=== PATIENT | male | born 1950 | race Hispanic/Latino ===

== ENCOUNTER → 2018-07-06 | Outpatient (CLI) | payer OTHER | END | disposition home or self-care (01) | LOC: SHCH 07:45 | PROVIDERS: ATTEND Internal Medicine Cardiovascular Disease | DX: I70.1 Atherosclerosis of renal artery (principal) | CPT/HCPCS: 93975 ==

== ENCOUNTER → 2019-01-17 | Outpatient (CLI) | payer OTHER | END | disposition home or self-care (01) | LOC: SHCH 08:14 | PROVIDERS: ATTEND Internal Medicine Cardiovascular Disease | DX: I65.23 Occlusion and stenosis of bilateral carotid arteries (principal); I73.9 Peripheral vascular disease, unspecified | CPT/HCPCS: 93880; 93925 ==

== ENCOUNTER → 2020-03-15 | Outpatient (CLI) | payer OTHER | END | disposition home or self-care (01) | LOC: SHCH 13:56 | PROVIDERS: ATTEND Internal Medicine Cardiovascular Disease | DX: I25.5 Ischemic cardiomyopathy (principal) | CPT/HCPCS: 93306; 93356 ==

== ENCOUNTER → 2020-06-13 | Outpatient (CLI) | payer OTHER | END | disposition home or self-care (01) | LOC: SHCH 07:59 | PROVIDERS: ATTEND Internal Medicine Cardiovascular Disease | DX: N26.1 Atrophy of kidney (terminal) (principal); Q27.1 Congenital renal artery stenosis | CPT/HCPCS: 93975 ==

== ENCOUNTER 2023-12-20 15:34 | Inpatient (IN) | payer OTHER ==
[~2023-12-20] VITALS: Ht 165.1 cm; Wt 58.5 kg
[2023-12-20 16:00] LABS: BASOPHILS # (AUTO) 0.04 K/uL (0.00-0.20); BASOPHILS % (AUTO) 0.6 % (0.0-5.0); EOSINOPHILS # (AUTO) 0.19 K/uL (0.00-0.70); HEMATOCRIT 38.1 % (42-54); IMMATURE GRANULOCYTE ABSOLUTE 0.04 K/uL (0-1); LYMPHOCYTES # (AUTO) 0.7 K/uL (1.0-4.8); LYMPHOCYTES % (AUTO) 10.8 % (21.0-51.0); MEAN CORPUSCULAR HEMOGLOBIN 28.4 pg (27.0-33.0); MEAN CORPUSCULAR HGB CONC 31.5 g/dL (32.0-36.0); MEAN CORPUSCULAR VOLUME 90.1 fL (79-99); MONOCYTES # (AUTO) 0.4 K/uL (0.1-1.0); MONOCYTES % (AUTO) 6.6 % (3.0-13.0); NEUTROPHILS % (AUTO) 78.4 % (40.0-77.0); PLATELET COUNT (AUTO) 108 K/uL (130-400); RED BLOOD CELL COUNT(AUTO) 4.23 MIL/uL (4.50-6.20); RED CELL DISTRIBUTION WIDTH 14.8 % (11.0-15.5); WHITE BLOOD COUNT (AUTO) 6.4 K/uL (4.8-10.8)
[2023-12-20 16:08] LABS: CREATININE 3.5 mg/dL (0.5-1.3); POTASSIUM 4.9 mmol/L (3.5-5.1)
[2023-12-20 16:13] LABS: ALBUMIN 3.1 g/dL (3.5-5.0); BILIRUBIN,TOTAL 0.7 mg/dL (0.2-1.0); TOTAL PROTEIN, SERUM 6.2 g/dL (6.0-8.3)
[2023-12-20 17:38] LABS: ABG BASE EXCESS -0.2 mmol/L (-2.0-3.0); ABG HCO3 22.2 mmol/L (21.0-28.0); ABG OXYGEN SATURATION 94.6 % (94.0-98.0); ABG PCO2 31 mmHg (35-48); ABG PH 7.479 (7.350-7.450); DEVICE COMMENT RBJOCELYN; PO2, ARTERIAL BG 66.2 mmHg (83.0-108.0); VENT MODE, BG RA (ROOM AIR)
[2023-12-20] MEDS: furoSEMIDE 20MG VIAL IVP SCH (20:27)
[2023-12-20] MEDS ORDERED: NITROGLYCERIN 0.4 MG SL TAB SL PRN (20:30)
[2023-12-20] MEDS ORDERED: ONDANSETRON 4MG INJ IV PRN (20:30)
[2023-12-20] MEDS ORDERED: GLUCAGON 1MG KIT 1 MG ML IM PRN (20:30)
[2023-12-20] MEDS ORDERED: DEXTROSE 50%-WATER 50 ML DISP.SYRIN IV PRN (20:30)
[2023-12-20 21:50] VITALS: BP 149/79; PULSE 77; RESP 18; TEMP 97.9
[2023-12-20 21:56] VITALS: PULSE 73; RESP 19; O2SAT 98
[2023-12-20 21:57] VITALS: PULSE 74; RESP 19
[2023-12-20] MEDS: IpraTROPium/alBUTERol SULFATE 3 ML SOLUTION IH SCH (21:57)
[2023-12-20] MEDS: FAMOTIDINE 20MG TAB PO SCH (22:18)
[2023-12-20] MEDS: INSULIN humuLIN R 100 UNIT/ML 3ML SQ SCH (23:00)
[2023-12-20 23:08] VITALS: O2SAT 100
[2023-12-21] VITALS (34 sets, daily range): BP systolic 110–180; BP diastolic 68–105; PULSE 68–87; RESP 12–20; TEMP 96.4–98.6; O2SAT 99–100
[2023-12-21] MEDS ORDERED: MELA5CAP PO (03:15)
[2023-12-21] MEDS ORDERED: DOCU100T PO (03:15)
[2023-12-21] MEDS ORDERED: CARV3.12 PO (03:15)
[2023-12-21] MEDS ORDERED: PANT40TA54 PO (03:15)
[2023-12-21] MEDS ORDERED: LACT10SO85 PO (03:15)
[2023-12-21] MEDS ORDERED: CLOP75TA32 PO (03:15)
[2023-12-21] MEDS ORDERED: ACET325T51 PO (03:15)
[2023-12-21] MEDS ORDERED: ATOR40TA71 PO (03:15)
[2023-12-21] MEDS ORDERED: GABA-529 PO (03:15)
[2023-12-21] MEDS ORDERED: LOSA50TA64 PO (03:15)
[2023-12-21] MEDS ORDERED: ISOS10TA8 PO (03:15)
[2023-12-21] MEDS ORDERED: DULO30CA52 PO (03:15)
[2023-12-21] MEDS ORDERED: BISA-151 PO (03:15)
[2023-12-21] MEDS ORDERED: SEVE800T7 PO (03:15)
[2023-12-21] MEDS ORDERED: NIFE-40 PO (03:15)
[2023-12-21] MEDS ORDERED: ASPI-1197 PO (03:15)
[2023-12-21 04:20] LABS: BASOPHILS # (AUTO) 0.02 K/uL (0.00-0.20); BASOPHILS % (AUTO) 0.4 % (0.0-5.0); EOSINOPHILS # (AUTO) 0.16 K/uL (0.00-0.70); EOSINOPHILS % (AUTO) 2.9 % (0.0-8.0); HEMATOCRIT 35.6 % (42-54); IMMATURE GRANULOCYTE ABSOLUTE 0.02 K/uL (0-1); LYMPHOCYTES # (AUTO) 0.8 K/uL (1.0-4.8); LYMPHOCYTES % (AUTO) 14.4 % (21.0-51.0); MEAN CORPUSCULAR HEMOGLOBIN 28.5 pg (27.0-33.0); MEAN CORPUSCULAR HGB CONC 31.7 g/dL (32.0-36.0); MEAN CORPUSCULAR VOLUME 89.7 fL (79-99); MONOCYTES # (AUTO) 0.4 K/uL (0.1-1.0); MONOCYTES % (AUTO) 7.8 % (3.0-13.0); NEUTROPHILS # (AUTO) 4.2 K/uL (1.8-7.7); NEUTROPHILS % (AUTO) 74.1 % (40.0-77.0); PLATELET COUNT (AUTO) 96 K/uL (130-400); RED BLOOD CELL COUNT(AUTO) 3.97 MIL/uL (4.50-6.20); RED CELL DISTRIBUTION WIDTH 14.7 % (11.0-15.5); WHITE BLOOD COUNT (AUTO) 5.6 K/uL (4.8-10.8)
[2023-12-21 04:33] LABS: ALBUMIN 2.9 g/dL (3.5-5.0); BILIRUBIN,TOTAL 0.7 mg/dL (0.2-1.0); CREATININE 3.7 mg/dL (0.5-1.3); MAGNESIUM 1.4 mg/dL (1.80-2.40); PHOSPHORUS 2.5 mg/dL (2.5-4.9); POTASSIUM 4.3 mmol/L (3.5-5.1); TOTAL PROTEIN, SERUM 5.9 g/dL (6.0-8.3)
[2023-12-21 04:54] LABS: B-TYPE NATRIURETIC PEPTIDE 3270 pg/mL (0-100)
[2023-12-21] MEDS ORDERED: 0.9% NACL 250ML 250 ML IV SCH (12:00)
[2023-12-21] MEDS: 0.9%NACL 1000ML 1,000 ML IV SCH (12:00)
[2023-12-21 12:03] LABS: APPEARANCE,URINE TURBID (CLEAR); BILIRUBIN,URINE NEGATIVE (NEGATIVE); COLOR,URINE YELLOW (YELLOW); GLUCOSE, URINE (UA) NEGATIVE (NEGATIVE); KETONES,URINE NEGATIVE (NEGATIVE); LEUKOCYTE ESTERASE ,URINE MODERATE Leu/uL (NEGATIVE); NITRATE,URINE NEGATIVE (NEGATIVE); OCCULT BLOOD,URINE LARGE (NEGATIVE); PH,URINE 6.5 (5.0-8.0); PROTEIN,URINE 100 mg/dL (NEGATIVE); UROBILINOGEN,URINE 0.2 mg/dL (0.2-1.0)
[2023-12-21 12:07] LABS: ADD UA MICROSCOPIC YES
[2023-12-21 12:10] LABS: RBC,URINE >100 /HPF (0-1); WBC,URINE TNTC /HPF (0-1)
[2023-12-21 12:11] LABS: BACTERIA,URINE Many /HPF (None Seen); SQUAMOUS EPITHELIAL CELL,UR Rare /HPF (0-2); YEAST,URINE BUDDING Few /HPF (None Seen); YEAST,URINE HYPHAE Few /HPF (None Seen)
[2023-12-21 17:33] LABS: INR 1.01 (0.85-1.15); PROTHROMBIN TIME 10.9 SEC (9.6-11.6)
[2023-12-21] MEDS: levoFLOXacin 500 MG/D5W 100 ML 100 ML IV SCH (17:39)
[2023-12-21] MEDS: BALSAM PERU/CASTOR OIL 60 GM TUBE TP SCH (20:56)
[2023-12-21] MEDS: GABApentin 100 MG CAPSULE PO SCH (21:00)
[2023-12-21] MEDS: carVEDIlol 3.125 MG TABLET PO SCH (21:00)
[2023-12-21] MEDS: atorVAStatin 40 MG TABLET PO SCH (21:00)
[2023-12-21] MEDS: HEParin 5,000 UNIT VIAL SQ SCH (22:00)
[2023-12-21 23:17] LABS: INFLUENZA TYPE A Negative For Type A (NEGATIVE); INFLUENZA TYPE B Negative For Type B (NEGATIVE)
[2023-12-21 23:19] LABS: COVID19 (SARS ANTIGEN RAPID) PRESUMPTIVE NEGATIVE (NEGATIVE)
[2023-12-22] VITALS (17 sets, daily range): BP systolic 111–176; BP diastolic 50–91; PULSE 76–97; RESP 16–19; TEMP 97.8–98.6; O2SAT 97–100
[2023-12-22] MEDS: NIFEDIPINE ER 30 MG TAB PO SCH (09:31)
[2023-12-22] MEDS: LoSARTan 50 MG TABLET PO SCH (09:31)
[2023-12-22] MEDS: CLOPIDOGREL 75MG TAB PO SCH (09:32)
[2023-12-22] MEDS: duloXETine HCL 30 MG CAP PO SCH (09:34)
[2023-12-22] MEDS: ASPIRIN 81MG CHEW TAB PO SCH (09:34)
[2023-12-22] MEDS ORDERED: IOHEXOL-350 75 ML VIAL IV ONE (15:11)
[2023-12-22 16:54] LABS: BASOPHILS # (AUTO) 0.02 K/uL (0.00-0.20); BASOPHILS % (AUTO) 0.4 % (0.0-5.0); EOSINOPHILS # (AUTO) 0.15 K/uL (0.00-0.70); EOSINOPHILS % (AUTO) 2.7 % (0.0-8.0); HEMATOCRIT 34.6 % (42-54); IMMATURE GRANULOCYTE ABSOLUTE 0.03 K/uL (0-1); LYMPHOCYTES # (AUTO) 0.6 K/uL (1.0-4.8); LYMPHOCYTES % (AUTO) 10.1 % (21.0-51.0); MEAN CORPUSCULAR HEMOGLOBIN 28.4 pg (27.0-33.0); MEAN CORPUSCULAR HGB CONC 32.1 g/dL (32.0-36.0); MEAN CORPUSCULAR VOLUME 88.5 fL (79-99); MONOCYTES # (AUTO) 0.5 K/uL (0.1-1.0); MONOCYTES % (AUTO) 8.3 % (3.0-13.0); NEUTROPHILS # (AUTO) 4.3 K/uL (1.8-7.7); PLATELET COUNT (AUTO) 104 K/uL (130-400); RED BLOOD CELL COUNT(AUTO) 3.91 MIL/uL (4.50-6.20); RED CELL DISTRIBUTION WIDTH 14.9 % (11.0-15.5); WHITE BLOOD COUNT (AUTO) 5.6 K/uL (4.8-10.8)
[2023-12-22 17:47] LABS: CREATININE 3.4 mg/dL (0.5-1.3); MAGNESIUM 1.4 mg/dL (1.80-2.40); PHOSPHORUS 2.7 mg/dL (2.5-4.9)
[2023-12-23] VITALS (29 sets, daily range): BP systolic 99–143; BP diastolic 32–98; PULSE 67–81; RESP 14–18; TEMP 97.9–98.3; O2SAT 93–98
[2023-12-23 11:08] LABS: HEMATOCRIT 31.9 % (42-54); MEAN CORPUSCULAR HEMOGLOBIN 28.1 pg (27.0-33.0); MEAN CORPUSCULAR VOLUME 87.9 fL (79-99); RED BLOOD CELL COUNT(AUTO) 3.63 MIL/uL (4.50-6.20); RED CELL DISTRIBUTION WIDTH 14.6 % (11.0-15.5)
[2023-12-23 11:17] LABS: CREATININE 3.8 mg/dL (0.5-1.3); POTASSIUM 3.8 mmol/L (3.5-5.1)
[2023-12-23 11:22] LABS: ALBUMIN 2.5 g/dL (3.5-5.0); BILIRUBIN,TOTAL 0.6 mg/dL (0.2-1.0); MAGNESIUM 1.4 mg/dL (1.80-2.40); TOTAL PROTEIN, SERUM 5.3 g/dL (6.0-8.3)
[2023-12-23] MEDS ORDERED: MAGNESIUM 2GM PREMIX 50ML 50 ML IV SCH (14:00)
[2023-12-23] MEDS: MAGNESIUM 2GM PREMIX 50ML 50 ML IV PRN (14:11)
[2023-12-23] MEDS: NYSTatin 15 GM POWDER TP SCH (20:29)
[2023-12-24] VITALS (12 sets, daily range): BP systolic 115–167; BP diastolic 43–79; PULSE 69–91; RESP 17–23; TEMP 97.9–98.6; O2SAT 87–100
[2023-12-24 08:32] LABS: HEMATOCRIT 35.9 % (42-54); MEAN CORPUSCULAR HEMOGLOBIN 28.1 pg (27.0-33.0); MEAN CORPUSCULAR HGB CONC 32.3 g/dL (32.0-36.0); MEAN CORPUSCULAR VOLUME 86.9 fL (79-99); RED BLOOD CELL COUNT(AUTO) 4.13 MIL/uL (4.50-6.20); RED CELL DISTRIBUTION WIDTH 14.7 % (11.0-15.5)
[2023-12-24 08:45] LABS: ALBUMIN 2.7 g/dL (3.5-5.0); BILIRUBIN,TOTAL 0.7 mg/dL (0.2-1.0); CREATININE 2.9 mg/dL (0.5-1.3); MAGNESIUM 1.8 mg/dL (1.80-2.40); POTASSIUM 3.1 mmol/L (3.5-5.1); TOTAL PROTEIN, SERUM 5.7 g/dL (6.0-8.3)
[2023-12-24] MEDS ORDERED: levoFLOXacin 500 MG/D5W 100 ML 100 ML IV SCH (18:00)
[2023-12-25] VITALS (25 sets, daily range): BP systolic 92–176; BP diastolic 34–70; PULSE 60–76; RESP 12–19; TEMP 97.5–98; O2SAT 93–98
[2023-12-25] MEDS: hydrALAZine 20MG/ML VIAL IV PRN (01:21)
[2023-12-25] MEDS ORDERED: 0.9% NACL 250ML 250 ML IV SCH (08:30)
[2023-12-25] MEDS: ALBUMIN (HUMAN) 25% 50 ML IV.SOLN. IV PRN (08:58)
[2023-12-25 09:35] LABS: HEPATITIS B SURFACE ANTIBODY Positive (Reactive)
[2023-12-25 09:36] LABS: HEPATITIS B CORE AB TOTAL Non-Reactive (Nonreactive); HEPATITIS C ANTIBODY Non-Reactive (Nonreactive)
[2023-12-25 09:36] LABS: HEMATOCRIT 32.3 % (42-54); MEAN CORPUSCULAR HEMOGLOBIN 28.8 pg (27.0-33.0); MEAN CORPUSCULAR HGB CONC 33.1 g/dL (32.0-36.0); MEAN CORPUSCULAR VOLUME 86.8 fL (79-99); RED BLOOD CELL COUNT(AUTO) 3.72 MIL/uL (4.50-6.20); RED CELL DISTRIBUTION WIDTH 14.6 % (11.0-15.5); WHITE BLOOD COUNT (AUTO) 4.9 K/uL (4.8-10.8)
[2023-12-25 09:43] LABS: HEPATITIS B SURFACE ANTIGEN Non-Reactive (Nonreactive)
[2023-12-25 09:55] LABS: ALBUMIN 2.8 g/dL (3.5-5.0); BILIRUBIN,TOTAL 0.6 mg/dL (0.2-1.0); MAGNESIUM 1.4 mg/dL (1.80-2.40); TOTAL PROTEIN, SERUM 5.7 g/dL (6.0-8.3)
[2023-12-25 10:22] LABS: POTASSIUM 2.8 mmol/L (3.5-5.1)
[2023-12-25] MEDS: 0.9%NACL 1000ML IV PRN (11:39)
[2024-01-11] MEDS ORDERED: LIDO700A30 TP (00:10)
[2024-01-11] MEDS ORDERED: SERT-438 PO (00:10)
== END 2023-12-25 18:00 | disposition home or self-care (01) | DRG 193 ==
LOC: EDH 15:34 → EDHIP 20:15 → 4CH 21:50
PROVIDERS: ADMIT Internal Medicine; ATTEND Internal Medicine
PROC: 5A1D70Z Performance of Urinary Filtration, Intermittent, Less than 6 Hours Per Day (ICD-10-PCS; principal; 2023-12-21)
PROC: 5A1D70Z Performance of Urinary Filtration, Intermittent, Less than 6 Hours Per Day (ICD-10-PCS; 2023-12-23)
PROC: 5A1D70Z Performance of Urinary Filtration, Intermittent, Less than 6 Hours Per Day (ICD-10-PCS; 2023-12-25)
DX: J18.9 Pneumonia, unspecified organism (principal); I50.33 Acute on chronic diastolic (congestive) heart failure; J96.01 Acute respiratory failure with hypoxia; N18.6 End stage renal disease; I13.2 Hypertensive heart and chronic kidney disease with heart failure and with stage 5 chronic kidney disease, or end stage renal disease; E11.52 Type 2 diabetes mellitus with diabetic peripheral angiopathy with gangrene; E46 Unspecified protein-calorie malnutrition; B37.49 Other urogenital candidiasis; J98.11 Atelectasis; I42.9 Cardiomyopathy, unspecified; Z20.822 Contact with and (suspected) exposure to COVID-19; D63.1 Anemia in chronic kidney disease; E11.65 Type 2 diabetes mellitus with hyperglycemia; D69.6 Thrombocytopenia, unspecified; E11.22 Type 2 diabetes mellitus with diabetic chronic kidney disease; E78.5 Hyperlipidemia, unspecified; I25.10 Atherosclerotic heart disease of native coronary artery without angina pectoris; I44.0 Atrioventricular block, first degree; Z88.8 Allergy status to other drugs, medicaments and biological substances; Z87.440 Personal history of urinary (tract) infections; Z88.0 Allergy status to penicillin; Z89.512 Acquired absence of left leg below knee; Z89.612 Acquired absence of left leg above knee; Z99.2 Dependence on renal dialysis; Z91.199 Patient's noncompliance with other medical treatment and regimen due to unspecified reason; Z95.1 Presence of aortocoronary bypass graft; Z68.21 Body mass index [BMI] 21.0-21.9, adult
CPT/HCPCS: 36415; 36600; 71045; 71270; 80048; 80053; 81001; 82803; 82948; 83690; 83735; 83880; 84100; 84145; 84484; 85025; 85027; 85378; 85610; 86704; 86706; 86803; 87086; 87340; 87426; 87804; 90935; 93005; 93970; 94640; 94664; 94760; C1894; G0378; J0360; J1644; J1815; J1940; J1956; J3475; P9047; Q9967; C1750

== ENCOUNTER 2024-01-03 14:13 | Inpatient (IN) | payer OTHER ==
[2024-01-03] VITALS (16 sets, daily range): BP systolic 147–162; BP diastolic 71–88; PULSE 66–74; RESP 13–24; TEMP 96.6; O2SAT 96–100
[~2024-01-03] VITALS: Ht 162.6 cm; Wt 52.9 kg
[~2024-01-03 14:13] MED LIST: ACET325T51 PO; ASPI-1197 PO; ATOR40TA71 PO; BISA-151 PO; CARV3.12 PO; CLOP75TA32 PO; DOCU100T PO; DULO30CA52 PO; GABA-529 PO; ISOS10TA8 PO; LACT10SO85 PO; LOSA50TA64 PO; MELA5CAP PO; NIFE-40 PO; PANT40TA54 PO; SEVE800T7 PO
[2024-01-03 14:50] LABS: BASOPHILS # (AUTO) 0.03 K/uL (0.00-0.20); BASOPHILS % (AUTO) 0.7 % (0.0-5.0); EOSINOPHILS # (AUTO) 0.21 K/uL (0.00-0.70); EOSINOPHILS % (AUTO) 5.2 % (0.0-8.0); HEMATOCRIT 27.5 % (42-54); LYMPHOCYTES # (AUTO) 0.6 K/uL (1.0-4.8); LYMPHOCYTES % (AUTO) 15.2 % (21.0-51.0); MEAN CORPUSCULAR HEMOGLOBIN 28.5 pg (27.0-33.0); MEAN CORPUSCULAR HGB CONC 32.4 g/dL (32.0-36.0); MEAN CORPUSCULAR VOLUME 88.1 fL (79-99); MONOCYTES # (AUTO) 0.3 K/uL (0.1-1.0); MONOCYTES % (AUTO) 6.4 % (3.0-13.0); NEUTROPHILS % (AUTO) 72.5 % (40.0-77.0); PLATELET COUNT (AUTO) 117 K/uL (130-400); RED BLOOD CELL COUNT(AUTO) 3.12 MIL/uL (4.50-6.20); RED CELL DISTRIBUTION WIDTH 14.8 % (11.0-15.5); WHITE BLOOD COUNT (AUTO) 4.1 K/uL (4.8-10.8)
[2024-01-03 15:02] LABS: CARBON DIOXIDE 29 mmol/L (21-32); CHLORIDE 99 mmol/L (101-111); CREATININE 3.4 mg/dL (0.5-1.3); GLOMERULAR FILTR. RATE CALC 18 mL/min (>90); GLUCOSE,RANDOM 102 mg/dL (70-105); POTASSIUM 3.6 mmol/L (3.5-5.1); SODIUM SERUM 136 mmol/L (136-145); UREA NITROGEN, BLOOD 47 mg/dL (7-18)
[2024-01-03 15:06] LABS: ACETAMINOPHEN 2 mcg/mL (10-29); CREATINE KINASE, TOTAL 33 U/L (21-232)
[2024-01-03 15:07] LABS: ALCOHOL, BLOOD < 3 mg/dL (0-10); SALICYLATE < 2.8 mg/dL (2.8-20.0)
[2024-01-03] MEDS: DEXTROSE 50%-WATER 25 GM/50 ML VIAL IV ONE (15:10)
[2024-01-03] MEDS: DEXTROSE 50%-WATER 50 ML DISP.SYRIN IV ONE (15:16)
[2024-01-03 15:40] LABS: APPEARANCE,URINE TURBID (CLEAR); BILIRUBIN,URINE NEGATIVE (NEGATIVE); COLOR,URINE YELLOW (YELLOW); GLUCOSE, URINE (UA) NEGATIVE (NEGATIVE); KETONES,URINE NEGATIVE (NEGATIVE); LEUKOCYTE ESTERASE ,URINE 500 Leu/uL (NEGATIVE); NITRATE,URINE NEGATIVE (NEGATIVE); PH,URINE 8.5 (5.0-8.0); PROTEIN,URINE 600 mg/dL (NEGATIVE); UROBILINOGEN,URINE 0.2 mg/dL (0.2-1.0)
[2024-01-03 15:49] LABS: AMMONIA < 10 umol/L (11-32)
[2024-01-03 15:49] LABS: ADD UA MICROSCOPIC YES
[2024-01-03] MEDS ORDERED: AZTREONAM 1 GM VIAL IVPB SCH (16:00)
[2024-01-03 16:06] LABS: BACTERIA,URINE MOD /HPF (None Seen); HYALINE CASTS, URINE 0-1 /LPF (0-1 /LPF); MUCUS,URINE RARE LPF (None Seen); OTHER CASTS, URINE 4 /LPF (None Seen); RBC,URINE 26-50 /HPF (0-1); SQUAMOUS EPITHELIAL CELL,UR RARE /HPF (0-2); TRIPLE PHOSPHATE CRYSTAL,UR FEW /LPF (None Seen); UNCLASSIFIED CRYSTAL 5 /HPF (None Seen); WBC CLUMP FEW /HPF (0-1); WBC,URINE 26-50 /HPF (0-1); YEAST,URINE BUDDING FEW /HPF (None Seen)
[2024-01-03 16:12] LABS: ABG HCO3 25.1 mmol/L (21.0-28.0); ABG OXYGEN SATURATION 95.7 % (94.0-98.0); ABG PCO2 35 mmHg (35-48); ABG PH 7.474 (7.350-7.450); PO2, ARTERIAL BG 73.3 mmHg (83.0-108.0); VENT MODE, BG RA (ROOM AIR)
[2024-01-03] MEDS: VANCOMYCIN 750MG VIAL IVPB ONE (16:42)
[2024-01-03] MEDS: 0.9% NACL 250ML IVPB ONE (16:43)
[2024-01-03] MEDS ORDERED: VANCOMYCIN PROTOCOL PER PHARMACY IV SCH (17:00)
[2024-01-03 17:14] LABS: HEMOGLOBIN A1C 6.3 % (4.0-6.0)
[2024-01-03 17:26] LABS: THYROID STIMULATING HORMONE 3.94 uIU/mL (0.36-3.74)
[2024-01-03] MEDS: AZTREONAM 1 GM VIAL IVPB SCH (17:37)
[2024-01-03] MEDS: furoSEMIDE 40MG VIAL IV ONE (17:37)
[2024-01-03 17:57] LABS: % IRON SATURATION 21.3 % (30-44)
[2024-01-03] MEDS: ALBUTEROL 0.083% 2.5 MG/3 ML INH IH SCH (19:16)
[2024-01-03] MEDS: levoFLOXacin 500 MG/D5W 100 ML 100 ML IV SCH (22:02)
[2024-01-03 23:20] LABS: SARS-CoV-2, RNA, NAAT NEGATIVE SARS CoV-2 (NEGATIVE)
[2024-01-03 23:25] LABS: INFLUENZA TYPE A Negative For Type A (NEGATIVE); INFLUENZA TYPE B Negative For Type B (NEGATIVE)
[2024-01-04] VITALS (54 sets, daily range): BP systolic 136–172; BP diastolic 47–116; PULSE 63–80; RESP 13–25; TEMP 96.6–98.4; O2SAT 95–100
[2024-01-04] MEDS ORDERED: FINA5TAB41 PO (01:52)
[2024-01-04] MEDS ORDERED: SERT-438 PO (01:52)
[2024-01-04] MEDS ORDERED: TRAZ-185 PO (01:52)
[2024-01-04] MEDS: furoSEMIDE 40MG VIAL IV SCH (04:55)
[2024-01-04] MEDS: acetaMINOPHEN 325 MG TAB PO PRN (06:05)
[2024-01-04] MEDS ORDERED: acetaMINOPHEN 325 MG TAB PO PRN (06:30)
[2024-01-04 08:42] LABS: BASOPHILS # (AUTO) 0.03 K/uL (0.00-0.20); BASOPHILS % (AUTO) 0.7 % (0.0-5.0); EOSINOPHILS # (AUTO) 0.24 K/uL (0.00-0.70); EOSINOPHILS % (AUTO) 5.4 % (0.0-8.0); HEMATOCRIT 30.7 % (42-54); IMMATURE GRANULOCYTE ABSOLUTE 0.02 K/uL (0-1); LYMPHOCYTES # (AUTO) 0.5 K/uL (1.0-4.8); LYMPHOCYTES % (AUTO) 12.1 % (21.0-51.0); MEAN CORPUSCULAR HEMOGLOBIN 28.6 pg (27.0-33.0); MEAN CORPUSCULAR HGB CONC 31.6 g/dL (32.0-36.0); MEAN CORPUSCULAR VOLUME 90.6 fL (79-99); MONOCYTES # (AUTO) 0.3 K/uL (0.1-1.0); MONOCYTES % (AUTO) 6.1 % (3.0-13.0); NEUTROPHILS # (AUTO) 3.4 K/uL (1.8-7.7); NEUTROPHILS % (AUTO) 75.3 % (40.0-77.0); PLATELET COUNT (AUTO) 104 K/uL (130-400); RED BLOOD CELL COUNT(AUTO) 3.39 MIL/uL (4.50-6.20); RED CELL DISTRIBUTION WIDTH 14.7 % (11.0-15.5); WHITE BLOOD COUNT (AUTO) 4.5 K/uL (4.8-10.8)
[2024-01-04 08:44] LABS: CREATININE 3.8 mg/dL (0.5-1.3); POTASSIUM 3.5 mmol/L (3.5-5.1)
[2024-01-04] MEDS: 0.9%NACL 1000ML 1,000 ML IV SCH (12:26)
[2024-01-04] MEDS: VANCOMYCIN 500MG+NS 100ML 100 ML IV SCH (15:55)
[2024-01-04] MEDS: EPOETIN ALFA-EPBX (NON-ESRD) 10,000 UNIT/ML VIAL SQ SCH (15:55)
[2024-01-04 17:34] LABS: CREATINE KINASE, TOTAL 23 U/L (21-232)
[2024-01-04] MEDS: carVEDIlol 3.125 MG TABLET PO SCH (20:30)
[2024-01-04] MEDS: SACUBITRIL/VALSARTAN 1 EACH TABLET PO SCH (20:30)
[2024-01-04] MEDS: atorVAStatin 40 MG TABLET PO SCH (20:30)
[2024-01-04] MEDS: SEVELAMER CARBONATE PO SCH (20:35)
[2024-01-04] MEDS ORDERED: IRON sUCROse COMPLEX 300 MG in 0.9% NACL 250ML 250 ML IV ONE (21:00)
[2024-01-05] VITALS (21 sets, daily range): BP systolic 122–155; BP diastolic 54–77; PULSE 73–80; RESP 15–28; TEMP 97.8–98.8; O2SAT 98–100
[2024-01-05 05:12] LABS: BASOPHILS # (AUTO) 0.02 K/uL (0.00-0.20); BASOPHILS % (AUTO) 0.4 % (0.0-5.0); EOSINOPHILS # (AUTO) 0.22 K/uL (0.00-0.70); EOSINOPHILS % (AUTO) 4.4 % (0.0-8.0); HEMATOCRIT 29.7 % (42-54); IMMATURE GRANULOCYTE ABSOLUTE 0.02 K/uL (0-1); LYMPHOCYTES # (AUTO) 0.7 K/uL (1.0-4.8); LYMPHOCYTES % (AUTO) 14.1 % (21.0-51.0); MEAN CORPUSCULAR HEMOGLOBIN 28.2 pg (27.0-33.0); MEAN CORPUSCULAR HGB CONC 32.3 g/dL (32.0-36.0); MEAN CORPUSCULAR VOLUME 87.1 fL (79-99); MONOCYTES # (AUTO) 0.3 K/uL (0.1-1.0); MONOCYTES % (AUTO) 6.4 % (3.0-13.0); NEUTROPHILS # (AUTO) 3.7 K/uL (1.8-7.7); NEUTROPHILS % (AUTO) 74.3 % (40.0-77.0); PLATELET COUNT (AUTO) 121 K/uL (130-400); RED BLOOD CELL COUNT(AUTO) 3.41 MIL/uL (4.50-6.20); RED CELL DISTRIBUTION WIDTH 14.7 % (11.0-15.5)
[2024-01-05 05:35] LABS: ALBUMIN 2.8 g/dL (3.5-5.0); BILIRUBIN,TOTAL 0.7 mg/dL (0.2-1.0); MAGNESIUM 1.7 mg/dL (1.80-2.40); PHOSPHORUS 2.7 mg/dL (2.5-4.9); POTASSIUM 3.8 mmol/L (3.5-5.1); TOTAL PROTEIN, SERUM 5.5 g/dL (6.0-8.3)
[2024-01-05] MEDS: cloPIDOgrel 75MG TAB PO SCH (08:29)
[2024-01-05] MEDS: carVEDIlol 6.25 MG TABLET PO SCH (08:30)
[2024-01-05] MEDS: ASPIRIN 81MG CHEW TAB PO SCH (08:30)
[2024-01-05] MEDS ORDERED: HEParin 5,000 UNIT VIAL SQ SCH (11:00)
[2024-01-05] MEDS ORDERED: ZOSYN 3.375GM +NS 50ML IV SCH (11:00)
[2024-01-05] MEDS ORDERED: PHARMACY COMMUNICATION MISC SCH (11:30)
[2024-01-05] MEDS ORDERED: AZTREONAM 1 GM VIAL IVPB SCH (12:00)
[2024-01-05] MEDS: sevELAMer HCL 800 MG TABLET PO SCH (12:00)
[2024-01-05] MEDS ORDERED: 0.9%NACL 50ML 50 ML IV SCH (20:00)
[2024-01-05] MEDS: AZTREONAM 1 GM VIAL IVPB SCH (20:34)
[2024-01-05] MEDS: HEParin 5,000 UNIT VIAL SQ SCH (20:36)
[2024-01-06] VITALS (26 sets, daily range): BP systolic 119–174; BP diastolic 64–95; PULSE 65–84; RESP 12–22; TEMP 97.5–98.4; O2SAT 100
[2024-01-06 05:43] LABS: HEMATOCRIT 28.1 % (42-54); MEAN CORPUSCULAR HEMOGLOBIN 28.2 pg (27.0-33.0); MEAN CORPUSCULAR HGB CONC 32.7 g/dL (32.0-36.0); MEAN CORPUSCULAR VOLUME 86.2 fL (79-99); RED BLOOD CELL COUNT(AUTO) 3.26 MIL/uL (4.50-6.20); RED CELL DISTRIBUTION WIDTH 14.9 % (11.0-15.5); WHITE BLOOD COUNT (AUTO) 4.4 K/uL (4.8-10.8)
[2024-01-06 06:12] LABS: CREATININE 3.6 mg/dL (0.5-1.3); POTASSIUM 3.2 mmol/L (3.5-5.1)
[2024-01-06 06:31] LABS: VANCOMYCIN LEVEL 14.1 mcg/mL (20.0-30.0)
[2024-01-06] MEDS: PANTOPrazole 40 MG TAB DR PO SCH (09:00)
[2024-01-07] VITALS (13 sets, daily range): BP systolic 133–176; BP diastolic 62–87; PULSE 69–88; RESP 18–22; TEMP 97.9–99; O2SAT 100
[2024-01-07] MEDS ORDERED: SULF1TAB42 PO (17:33)
[2024-01-07] MEDS ORDERED: SERT20OR6 PO (17:33)
[2024-01-07] MEDS ORDERED: SACU1TAB7 PO (18:25)
[2024-01-11] MEDS ORDERED: SERT-438 PO ×2 (00:10→00:13)
[2024-01-11] MEDS ORDERED: LIDO700A30 TP (00:10)
== END 2024-01-07 23:18 | disposition home or self-care (01) | DRG 91 ==
LOC: EDH 14:13 → EDHIP 16:54 → 2CV 21:10 → 2BH 01-04 05:00 → 4AH 01-05 11:26
PROVIDERS: ADMIT Internal Medicine; ATTEND Internal Medicine
PROC: 5A09357 Assistance with Respiratory Ventilation, Less than 24 Consecutive Hours, Continuous Positive Airway Pressure (ICD-10-PCS; principal; 2024-01-03)
PROC: 5A09357 Assistance with Respiratory Ventilation, Less than 24 Consecutive Hours, Continuous Positive Airway Pressure (ICD-10-PCS; 2024-01-04)
PROC: 5A1D70Z Performance of Urinary Filtration, Intermittent, Less than 6 Hours Per Day (ICD-10-PCS; 2024-01-04)
PROC: 5A09357 Assistance with Respiratory Ventilation, Less than 24 Consecutive Hours, Continuous Positive Airway Pressure (ICD-10-PCS; 2024-01-05)
PROC: 5A09357 Assistance with Respiratory Ventilation, Less than 24 Consecutive Hours, Continuous Positive Airway Pressure (ICD-10-PCS; 2024-01-06)
PROC: 5A1D70Z Performance of Urinary Filtration, Intermittent, Less than 6 Hours Per Day (ICD-10-PCS; 2024-01-06)
PROC: 5A09357 Assistance with Respiratory Ventilation, Less than 24 Consecutive Hours, Continuous Positive Airway Pressure (ICD-10-PCS; 2024-01-07)
DX: G92.8 Other toxic encephalopathy (principal); I50.23 Acute on chronic systolic (congestive) heart failure; J18.9 Pneumonia, unspecified organism; N18.6 End stage renal disease; J96.21 Acute and chronic respiratory failure with hypoxia; I13.2 Hypertensive heart and chronic kidney disease with heart failure and with stage 5 chronic kidney disease, or end stage renal disease; D61.818 Other pancytopenia; N30.00 Acute cystitis without hematuria; T50.915A Adverse effect of multiple unspecified drugs, medicaments and biological substances, initial encounter; E11.22 Type 2 diabetes mellitus with diabetic chronic kidney disease; Z99.2 Dependence on renal dialysis; I25.10 Atherosclerotic heart disease of native coronary artery without angina pectoris; Z95.1 Presence of aortocoronary bypass graft; E11.51 Type 2 diabetes mellitus with diabetic peripheral angiopathy without gangrene; E11.65 Type 2 diabetes mellitus with hyperglycemia; E78.5 Hyperlipidemia, unspecified; I25.5 Ischemic cardiomyopathy; I27.20 Pulmonary hypertension, unspecified; F32.A Depression, unspecified; F41.9 Anxiety disorder, unspecified; R62.7 Adult failure to thrive; D64.9 Anemia, unspecified; I08.1 Rheumatic disorders of both mitral and tricuspid valves; Z79.899 Other long term (current) drug therapy; Z88.0 Allergy status to penicillin; Z88.1 Allergy status to other antibiotic agents; Z89.512 Acquired absence of left leg below knee; Z89.612 Acquired absence of left leg above knee; Z88.8 Allergy status to other drugs, medicaments and biological substances; Z68.20 Body mass index [BMI] 20.0-20.9, adult
CPT/HCPCS: 36415; 36600; 70450; 71045; 80048; 80053; 80202; 81001; 82140; 82550; 82803; 82948; 83036; 83540; 83550; 83605; 83735; 84100; 84145; 84443; 84484; 85025; 85027; 86140; 86850; 86900; 86901; 87040; 87086; 87186; 87635; 87804; 90935; 93005; 93306; 94640; 94664; 96365; 96375; 99291; A4344; A6250; G0378; G0481; J1644; J1940; J1956; J3370; J3490; J7050; J7070; Q5106

== ENCOUNTER 2024-01-27 13:18 | Inpatient (IN) | payer OTHER ==
[2024-01-27] VITALS (16 sets, daily range): BP systolic 145–169; BP diastolic 70–98; PULSE 76–86; RESP 14–20; TEMP 97.5–98; O2SAT 94
[~2024-01-27] VITALS: Ht 167.6 cm; Wt 52.8 kg
[~2024-01-27 13:18] MED LIST changes: -BISA-151 PO; -DOCU100T PO; -DULO30CA52 PO; +FINA5TAB41 PO; -GABA-529 PO; +LIDO700A30 TP; -LOSA50TA64 PO; -MELA5CAP PO; -PANT40TA54 PO; +SACU1TAB7 PO; +SERT-438 PO
[2024-01-27 14:24] LABS: BASOPHILS # (AUTO) 0.03 K/uL (0.00-0.20); BASOPHILS % (AUTO) 0.6 % (0.0-5.0); EOSINOPHILS # (AUTO) 0.15 K/uL (0.00-0.70); EOSINOPHILS % (AUTO) 2.9 % (0.0-8.0); HEMATOCRIT 34.1 % (42-54); IMMATURE GRANULOCYTE ABSOLUTE 0.04 K/uL (0-1); LYMPHOCYTES # (AUTO) 0.4 K/uL (1.0-4.8); LYMPHOCYTES % (AUTO) 7.1 % (21.0-51.0); MEAN CORPUSCULAR HGB CONC 31.4 g/dL (32.0-36.0); MEAN CORPUSCULAR VOLUME 92.4 fL (79-99); MONOCYTES # (AUTO) 0.3 K/uL (0.1-1.0); MONOCYTES % (AUTO) 6.7 % (3.0-13.0); NEUTROPHILS # (AUTO) 4.2 K/uL (1.8-7.7); NEUTROPHILS % (AUTO) 81.9 % (40.0-77.0); PLATELET COUNT (AUTO) 113 K/uL (130-400); RED BLOOD CELL COUNT(AUTO) 3.69 MIL/uL (4.50-6.20); RED CELL DISTRIBUTION WIDTH 18.3 % (11.0-15.5); WHITE BLOOD COUNT (AUTO) 5.1 K/uL (4.8-10.8)
[2024-01-27 14:33] LABS: INR 1.19 (0.85-1.15); PROTHROMBIN TIME 12.7 SEC (9.6-11.6)
[2024-01-27 14:34] LABS: PARTIAL THROMBOPLASTIN TIME 30.3 SEC (26.3-35.5)
[2024-01-27 16:29] LABS: ALBUMIN 3.2 g/dL (3.5-5.0); BILIRUBIN,DIRECT 0.2 mg/dL (0.0-0.3); BILIRUBIN,TOTAL 0.7 mg/dL (0.2-1.0); TOTAL PROTEIN, SERUM 6.5 g/dL (6.0-8.3)
[2024-01-27] MEDS ORDERED: IpraTROPium 0.5 MG/2.5 ML INH IH PRN (16:30)
[2024-01-27] MEDS ORDERED: ondanSETRON 4MG INJ IVP PRN (16:30)
[2024-01-27] MEDS ORDERED: DEXTROSE 50%-WATER 50 ML DISP.SYRIN IV PRN (16:30)
[2024-01-27] MEDS ORDERED: GLUCAGON 1MG KIT 1 MG ML IM PRN (16:30)
[2024-01-27] MEDS: INSULIN humuLIN R 100 UNIT/ML 3ML SQ SCH (16:30)
[2024-01-27] MEDS ORDERED: hydrALAZine 20MG/ML VIAL IV PRN (16:30)
[2024-01-27] MEDS: 0.9%NACL 1000ML 1,000 ML IV SCH (18:14)
[2024-01-27] MEDS: carVEDIlol 6.25 MG TABLET PO SCH (21:25)
[2024-01-27] MEDS ORDERED: levoFLOXacin 500 MG/D5W 100 ML 100 ML IV ONE (22:00)
[2024-01-27] MEDS ORDERED: levoFLOXacin 500 MG/D5W 100 ML 100 ML IV SCH (22:00)
[2024-01-27] MEDS: SACUBITRIL/VALSARTAN 1 EACH TABLET PO SCH (23:20)
[2024-01-27] MEDS: acetaMINOPHEN 500 MG TABLET PO PRN (23:21)
[2024-01-28] VITALS (7 sets, daily range): BP systolic 134–159; BP diastolic 70–79; PULSE 70–81; RESP 16–18; TEMP 97.8–98.8; O2SAT 94–100
[2024-01-28] MEDS ORDERED: CHOL12502 PO (00:36)
[2024-01-28] MEDS ORDERED: ONDA-104 PO (00:36)
[2024-01-28] MEDS ORDERED: CALC-125 PO (00:36)
[2024-01-28] MEDS ORDERED: HEPAR25KIV SQ (00:36)
[2024-01-28] MEDS ORDERED: IPRA3AMP24 IH (00:36)
[2024-01-28] MEDS ORDERED: CITA10TA13 PO (00:36)
[2024-01-28] MEDS ORDERED: FINA5TAB41 PO (00:36)
[2024-01-28] MEDS ORDERED: ISOS10TA8 PO (00:36)
[2024-01-28] MEDS ORDERED: EPOE20002 IJ (00:36)
[2024-01-28] MEDS ORDERED: INSLAN SQ (00:36)
[2024-01-28] MEDS ORDERED: AMMO385C4 TP (00:36)
[2024-01-28] MEDS ORDERED: FURO20TA6 PO (00:36)
[2024-01-28] MEDS ORDERED: FOLI0.8T43 PO (00:36)
[2024-01-28] MEDS ORDERED: PANT40TA55 PO (00:36)
[2024-01-28] MEDS ORDERED: MELA1TAB16 PO (00:36)
[2024-01-28] MEDS ORDERED: BALS60OI4 TP (00:36)
[2024-01-28] MEDS ORDERED: MAGN400T51 PO (00:36)
[2024-01-28] MEDS: cloPIDOgrel 75MG TAB PO SCH (09:00)
[2024-01-28] MEDS ORDERED: PHARMACY COMMUNICATION 1 EACH EACH MISC SCH (16:30)
[2024-01-28 20:50] LABS: BASOPHILS # (AUTO) 0.05 K/uL (0.00-0.20); EOSINOPHILS # (AUTO) 0.14 K/uL (0.00-0.70); EOSINOPHILS % (AUTO) 2.7 % (0.0-8.0); HEMATOCRIT 38.8 % (42-54); IMMATURE GRANULOCYTE ABSOLUTE 0.03 K/uL (0-1); LYMPHOCYTES # (AUTO) 0.5 K/uL (1.0-4.8); LYMPHOCYTES % (AUTO) 9.8 % (21.0-51.0); MEAN CORPUSCULAR HEMOGLOBIN 29.3 pg (27.0-33.0); MEAN CORPUSCULAR HGB CONC 30.7 g/dL (32.0-36.0); MEAN CORPUSCULAR VOLUME 95.6 fL (79-99); MONOCYTES # (AUTO) 0.3 K/uL (0.1-1.0); MONOCYTES % (AUTO) 5.6 % (3.0-13.0); NEUTROPHILS # (AUTO) 4.2 K/uL (1.8-7.7); NEUTROPHILS % (AUTO) 80.3 % (40.0-77.0); PLATELET COUNT (AUTO) 115 K/uL (130-400); RED BLOOD CELL COUNT(AUTO) 4.06 MIL/uL (4.50-6.20); RED CELL DISTRIBUTION WIDTH 18.3 % (11.0-15.5); WHITE BLOOD COUNT (AUTO) 5.2 K/uL (4.8-10.8)
[2024-01-28] MEDS ORDERED: BALSAM PERU/CASTOR OIL 60 GM TUBE TP SCH (21:00)
[2024-01-28 21:09] LABS: ALBUMIN 2.9 g/dL (3.5-5.0); BILIRUBIN,TOTAL 0.6 mg/dL (0.2-1.0); CREATININE 3.8 mg/dL (0.5-1.3); MAGNESIUM 1.8 mg/dL (1.80-2.40); TOTAL PROTEIN, SERUM 6.1 g/dL (6.0-8.3)
[2024-01-28] MEDS: BALSAM PERU/CASTOR OIL 60 GM TUBE TP SCH (22:26)
[2024-01-29] VITALS (21 sets, daily range): BP systolic 140–161; BP diastolic 63–93; PULSE 73–83; RESP 12–18; TEMP 96.2–98.2; O2SAT 99–100
[2024-01-29 04:50] LABS: BASOPHILS # (AUTO) 0.04 K/uL (0.00-0.20); BASOPHILS % (AUTO) 0.6 % (0.0-5.0); EOSINOPHILS # (AUTO) 0.15 K/uL (0.00-0.70); EOSINOPHILS % (AUTO) 2.3 % (0.0-8.0); HEMATOCRIT 35.2 % (42-54); IMMATURE GRANULOCYTE ABSOLUTE 0.04 K/uL (0-1); LYMPHOCYTES # (AUTO) 0.6 K/uL (1.0-4.8); LYMPHOCYTES % (AUTO) 9.6 % (21.0-51.0); MEAN CORPUSCULAR HEMOGLOBIN 28.5 pg (27.0-33.0); MEAN CORPUSCULAR HGB CONC 30.7 g/dL (32.0-36.0); MEAN CORPUSCULAR VOLUME 92.9 fL (79-99); MONOCYTES # (AUTO) 0.4 K/uL (0.1-1.0); MONOCYTES % (AUTO) 6.5 % (3.0-13.0); NEUTROPHILS # (AUTO) 5.2 K/uL (1.8-7.7); NEUTROPHILS % (AUTO) 80.4 % (40.0-77.0); PLATELET COUNT (AUTO) 120 K/uL (130-400); RED BLOOD CELL COUNT(AUTO) 3.79 MIL/uL (4.50-6.20); RED CELL DISTRIBUTION WIDTH 17.9 % (11.0-15.5); WHITE BLOOD COUNT (AUTO) 6.5 K/uL (4.8-10.8)
[2024-01-29 05:17] LABS: ALBUMIN 2.7 g/dL (3.5-5.0); BILIRUBIN,TOTAL 0.6 mg/dL (0.2-1.0); CREATININE 3.9 mg/dL (0.5-1.3); MAGNESIUM 1.7 mg/dL (1.80-2.40); POTASSIUM 4.1 mmol/L (3.5-5.1); TOTAL PROTEIN, SERUM 5.7 g/dL (6.0-8.3)
[2024-01-29] MEDS: ASPIRIN 81MG CHEW TAB PO SCH (09:00)
[2024-01-29] MEDS: ISOSORBIDE MONO 60MG SR TAB PO SCH (09:00)
[2024-01-29] MEDS: carVEDIlol 6.25 MG TABLET PO SCH (09:00)
[2024-01-29] MEDS: SACUBITRIL/VALSARTAN 1 EACH TABLET PO SCH (09:00)
[2024-01-29] MEDS: HEParin 25,000 UNITS/250ML D5W 250 ML IV SCH (18:49)
[2024-01-29] MEDS: HEParin 5,000 UNIT VIAL IV PRN (18:51)
[2024-01-29] MEDS: carVEDIlol 12.5 MG TABLET PO SCH (21:00)
[2024-01-30] VITALS (19 sets, daily range): BP systolic 131–180; BP diastolic 68–102; PULSE 64–91; RESP 18–20; TEMP 97.5–98.3; O2SAT 98–100
[2024-01-30] MEDS: ZOLPidem TARTrate 5 MG TAB PO PRN (00:47)
[2024-01-30 05:26] LABS: BASOPHILS # (AUTO) 0.04 K/uL (0.00-0.20); BASOPHILS % (AUTO) 0.7 % (0.0-5.0); EOSINOPHILS # (AUTO) 0.17 K/uL (0.00-0.70); EOSINOPHILS % (AUTO) 2.9 % (0.0-8.0); HEMATOCRIT 37.2 % (42-54); IMMATURE GRANULOCYTE ABSOLUTE 0.03 K/uL (0-1); LYMPHOCYTES # (AUTO) 0.7 K/uL (1.0-4.8); LYMPHOCYTES % (AUTO) 11.4 % (21.0-51.0); MEAN CORPUSCULAR HEMOGLOBIN 29.2 pg (27.0-33.0); MEAN CORPUSCULAR HGB CONC 31.7 g/dL (32.0-36.0); MEAN CORPUSCULAR VOLUME 92.1 fL (79-99); MONOCYTES # (AUTO) 0.4 K/uL (0.1-1.0); MONOCYTES % (AUTO) 7.1 % (3.0-13.0); NEUTROPHILS # (AUTO) 4.6 K/uL (1.8-7.7); NEUTROPHILS % (AUTO) 77.4 % (40.0-77.0); PLATELET COUNT (AUTO) 117 K/uL (130-400); RED BLOOD CELL COUNT(AUTO) 4.04 MIL/uL (4.50-6.20); RED CELL DISTRIBUTION WIDTH 17.8 % (11.0-15.5); WHITE BLOOD COUNT (AUTO) 5.9 K/uL (4.8-10.8)
[2024-01-30] MEDS ORDERED: LIDOCAINE HCL 400MG/20ML VIAL ONE (11:21)
[2024-01-30] MEDS ORDERED: HEParin-NS 1,000 UNIT/500 ML 1,000 ML IV ONE (11:22)
[2024-01-30] MEDS ORDERED: NITROGLYCERIN 50MG VIAL ONE (11:22)
[2024-01-30] MEDS ORDERED: IODIXANOL 320 MG/ML 100 ML VIAL ONE (11:22)
[2024-01-30] MEDS ORDERED: HEParin 10,000 UNIT/10ML (1,000 UNIT/ML) VIAL ONE (11:22)
[2024-01-30] MEDS ORDERED: MIDAZOLAM HCL 1 MG/ML 2ML VIAL ONE (11:53)
[2024-01-30] MEDS ORDERED: FENTanyl CITRate PF 50 MCG/1 ML 2ML VIAL ONE (11:53)
[2024-01-30] MEDS ORDERED: ASPIRIN 81MG CHEW TAB ONE (12:59)
[2024-01-30] MEDS ORDERED: cloPIDOgrel 300MG TAB ONE (12:59)
[2024-01-30] MEDS: cloPIDOgrel 300MG TAB PO ONE (16:06)
[2024-01-30] MEDS: ASPIRIN 81 MG EC TAB PO ONE (16:07)
[2024-01-30] MEDS: NITROGLYCERIN 0.4 MG SL TAB SL PRN (21:27)
[2024-01-30] MEDS: PANTOPrazole 40 MG TAB DR PO ONE (23:23)
[2024-01-31] VITALS (8 sets, daily range): BP systolic 143–160; BP diastolic 72–91; PULSE 68–80; RESP 15–20; TEMP 98–98.2; O2SAT 97–99
[2024-01-31] MEDS: PANTOPrazole 40 MG TAB DR PO SCH (09:45)
[2024-01-31] MEDS ORDERED: CARV12.580 PO (12:26)
[2024-01-31] MEDS ORDERED: ISOS60TA77 PO (12:26)
[2024-01-31] MEDS ORDERED: SACU1TAB4 PO (12:26)
[2024-01-31 14:06] LABS: HEMATOCRIT 32.7 % (42-54); MEAN CORPUSCULAR HEMOGLOBIN 29.3 pg (27.0-33.0); MEAN CORPUSCULAR HGB CONC 31.5 g/dL (32.0-36.0); MEAN CORPUSCULAR VOLUME 92.9 fL (79-99); RED BLOOD CELL COUNT(AUTO) 3.52 MIL/uL (4.50-6.20); RED CELL DISTRIBUTION WIDTH 17.2 % (11.0-15.5); WHITE BLOOD COUNT (AUTO) 5.2 K/uL (4.8-10.8)
[2024-01-31 14:20] LABS: CREATININE 4.7 mg/dL (0.5-1.3); POTASSIUM 4.4 mmol/L (3.5-5.1)
[2024-02-01] VITALS (22 sets, daily range): BP systolic 133–163; BP diastolic 60–85; PULSE 64–74; RESP 14–20; TEMP 97.5–98.1; O2SAT 96–100
[2024-02-01 16:59] LABS: BASOPHILS # (AUTO) 0.01 K/uL (0.00-0.20); BASOPHILS % (AUTO) 0.3 % (0.0-5.0); EOSINOPHILS # (AUTO) 0.08 K/uL (0.00-0.70); EOSINOPHILS % (AUTO) 2.6 % (0.0-8.0); HEMATOCRIT 29.2 % (42-54); IMMATURE GRANULOCYTE ABSOLUTE 0.01 K/uL (0-1); LYMPHOCYTES # (AUTO) 0.3 K/uL (1.0-4.8); LYMPHOCYTES % (AUTO) 9.3 % (21.0-51.0); MEAN CORPUSCULAR HEMOGLOBIN 29.2 pg (27.0-33.0); MEAN CORPUSCULAR HGB CONC 32.2 g/dL (32.0-36.0); MEAN CORPUSCULAR VOLUME 90.7 fL (79-99); MONOCYTES # (AUTO) 0.2 K/uL (0.1-1.0); MONOCYTES % (AUTO) 4.8 % (3.0-13.0); NEUTROPHILS # (AUTO) 2.6 K/uL (1.8-7.7); NEUTROPHILS % (AUTO) 82.7 % (40.0-77.0); PLATELET COUNT (AUTO) 81 K/uL (130-400); RED BLOOD CELL COUNT(AUTO) 3.22 MIL/uL (4.50-6.20); WHITE BLOOD COUNT (AUTO) 3.1 K/uL (4.8-10.8)
[2024-02-01 17:17] LABS: ALBUMIN 2.7 g/dL (3.5-5.0); BILIRUBIN,TOTAL 0.5 mg/dL (0.2-1.0); CREATININE 4.2 mg/dL (0.5-1.3); PHOSPHORUS 3.3 mg/dL (2.5-4.9); POTASSIUM 4.1 mmol/L (3.5-5.1); TOTAL PROTEIN, SERUM 5.8 g/dL (6.0-8.3)
[2024-02-02] VITALS (8 sets, daily range): BP systolic 141–158; BP diastolic 69–78; PULSE 62–82; RESP 16–18; TEMP 98–98.3; O2SAT 98–100
[2024-02-02 10:16] LABS: HEMATOCRIT 33.4 % (42-54); MEAN CORPUSCULAR HEMOGLOBIN 29.4 pg (27.0-33.0); MEAN CORPUSCULAR HGB CONC 32.3 g/dL (32.0-36.0); RED BLOOD CELL COUNT(AUTO) 3.67 MIL/uL (4.50-6.20); RED CELL DISTRIBUTION WIDTH 17.1 % (11.0-15.5); WHITE BLOOD COUNT (AUTO) 4.8 K/uL (4.8-10.8)
[2024-02-02 10:28] LABS: ALBUMIN 2.8 g/dL (3.5-5.0); BILIRUBIN,TOTAL 0.7 mg/dL (0.2-1.0); CREATININE 3.9 mg/dL (0.5-1.3); MAGNESIUM 1.6 mg/dL (1.80-2.40); POTASSIUM 4.3 mmol/L (3.5-5.1); TOTAL PROTEIN, SERUM 5.8 g/dL (6.0-8.3)
[2024-02-02] MEDS ORDERED: MAGNESIUM 2GM PREMIX 50ML 50 ML IV SCH (11:00)
[2024-02-02 12:59] LABS: HEMOGLOBIN A1C 6.2 % (4.0-6.0)
[2024-02-03] VITALS (24 sets, daily range): BP systolic 100–156; BP diastolic 59–79; PULSE 60–76; RESP 12–20; TEMP 97.5–98.6; O2SAT 95–99
[2024-02-03 07:25] LABS: HEMATOCRIT 32.1 % (42-54); MEAN CORPUSCULAR HEMOGLOBIN 28.9 pg (27.0-33.0); MEAN CORPUSCULAR HGB CONC 32.1 g/dL (32.0-36.0); MEAN CORPUSCULAR VOLUME 90.2 fL (79-99); RED BLOOD CELL COUNT(AUTO) 3.56 MIL/uL (4.50-6.20); RED CELL DISTRIBUTION WIDTH 16.5 % (11.0-15.5); WHITE BLOOD COUNT (AUTO) 4.9 K/uL (4.8-10.8)
[2024-02-03 07:43] LABS: ALBUMIN 2.9 g/dL (3.5-5.0); BILIRUBIN,TOTAL 0.6 mg/dL (0.2-1.0); CREATININE 4.7 mg/dL (0.5-1.3); MAGNESIUM 1.7 mg/dL (1.80-2.40)
[2024-02-03] MEDS ORDERED: MAGNESIUM 2GM PREMIX 50ML 50 ML IV SCH (08:00)
[2024-02-03] MEDS: MELATONIN 5 MG TABLET PO SCH (22:55)
[2024-02-04] MEDS: hydrOXYzine 10 MG TABLET PO ONE (00:29)
[2024-02-04 04:00] VITALS: BP 151/78; PULSE 68; RESP 20; TEMP 97.9
[2024-02-04 05:20] LABS: HEMATOCRIT 34.6 % (42-54); MEAN CORPUSCULAR HEMOGLOBIN 29.6 pg (27.0-33.0); MEAN CORPUSCULAR HGB CONC 32.4 g/dL (32.0-36.0); MEAN CORPUSCULAR VOLUME 91.3 fL (79-99); RED BLOOD CELL COUNT(AUTO) 3.79 MIL/uL (4.50-6.20); RED CELL DISTRIBUTION WIDTH 16.5 % (11.0-15.5); WHITE BLOOD COUNT (AUTO) 5.8 K/uL (4.8-10.8)
[2024-02-04 05:59] LABS: ALBUMIN 2.7 g/dL (3.5-5.0); BILIRUBIN,TOTAL 0.6 mg/dL (0.2-1.0); CREATININE 3.5 mg/dL (0.5-1.3); MAGNESIUM 1.6 mg/dL (1.80-2.40); POTASSIUM 4.2 mmol/L (3.5-5.1); TOTAL PROTEIN, SERUM 5.8 g/dL (6.0-8.3)
[2024-02-04 08:00] VITALS: BP 160/77; PULSE 75; RESP 18; TEMP 98.6; O2SAT 95
[2024-02-04] MEDS ORDERED: LIDOCAINE 4% ADH..PATCH TP SCH (11:30)
[2024-02-04 11:36] VITALS: BP 164/81; PULSE 77; RESP 19; TEMP 98.3
== END 2024-02-04 12:15 | DRG 252 ==
LOC: EDH 13:18 → EDHIP 15:56 → 4BH 21:33
PROVIDERS: ADMIT Internal Medicine; ATTEND Internal Medicine
PROC: 0HBRXZZ Excision of Toe Nail, External Approach (ICD-10-PCS; 2024-01-27)
PROC: 0HBRXZZ Excision of Toe Nail, External Approach (ICD-10-PCS; 2024-01-27)
PROC: 0HBRXZZ Excision of Toe Nail, External Approach (ICD-10-PCS; 2024-01-27)
PROC: 0HBRXZZ Excision of Toe Nail, External Approach (ICD-10-PCS; 2024-01-27)
PROC: 0HBRXZZ Excision of Toe Nail, External Approach (ICD-10-PCS; 2024-01-27)
PROC: 5A1D70Z Performance of Urinary Filtration, Intermittent, Less than 6 Hours Per Day (ICD-10-PCS; 2024-01-27)
PROC: 5A1D70Z Performance of Urinary Filtration, Intermittent, Less than 6 Hours Per Day (ICD-10-PCS; 2024-01-29)
PROC: 047K3Z1 Dilation of Right Femoral Artery using Drug-Coated Balloon, Percutaneous Approach (ICD-10-PCS; principal; 2024-01-30)
PROC: 047M3ZZ Dilation of Right Popliteal Artery, Percutaneous Approach (ICD-10-PCS; 2024-01-30)
PROC: B41F1ZZ Fluoroscopy of Right Lower Extremity Arteries using Low Osmolar Contrast (ICD-10-PCS; 2024-01-30)
PROC: 5A1D70Z Performance of Urinary Filtration, Intermittent, Less than 6 Hours Per Day (ICD-10-PCS; 2024-02-01)
PROC: 5A1D70Z Performance of Urinary Filtration, Intermittent, Less than 6 Hours Per Day (ICD-10-PCS; 2024-02-03)
DX: E11.51 Type 2 diabetes mellitus with diabetic peripheral angiopathy without gangrene (principal); I21.A1 Myocardial infarction type 2; I50.43 Acute on chronic combined systolic (congestive) and diastolic (congestive) heart failure; N18.6 End stage renal disease; I13.2 Hypertensive heart and chronic kidney disease with heart failure and with stage 5 chronic kidney disease, or end stage renal disease; Z68.1 Body mass index [BMI] 19.9 or less, adult; I25.10 Atherosclerotic heart disease of native coronary artery without angina pectoris; Z66 Do not resuscitate; E86.0 Dehydration; L97.519 Non-pressure chronic ulcer of other part of right foot with unspecified severity; S90.31XA Contusion of right foot, initial encounter; E11.22 Type 2 diabetes mellitus with diabetic chronic kidney disease; E11.65 Type 2 diabetes mellitus with hyperglycemia; I25.5 Ischemic cardiomyopathy; D69.6 Thrombocytopenia, unspecified; E78.5 Hyperlipidemia, unspecified; I1A.0 Resistant hypertension; F03.90 Unspecified dementia, unspecified severity, without behavioral disturbance, psychotic disturbance, mood disturbance, and anxiety; S93.401A Sprain of unspecified ligament of right ankle, initial encounter; W06.XXXA Fall from bed, initial encounter; Y93.89 Activity, other specified; Y99.8 Other external cause status; Y92.122 Bedroom in nursing home as the place of occurrence of the external cause; Z88.0 Allergy status to penicillin; Z88.8 Allergy status to other drugs, medicaments and biological substances; Z99.2 Dependence on renal dialysis; Z79.02 Long term (current) use of antithrombotics/antiplatelets; Z79.82 Long term (current) use of aspirin; Z87.891 Personal history of nicotine dependence; Z88.1 Allergy status to other antibiotic agents; Z89.512 Acquired absence of left leg below knee; Z89.612 Acquired absence of left leg above knee; Z91.148 Patient's other noncompliance with medication regimen for other reason; Z91.199 Patient's noncompliance with other medical treatment and regimen due to unspecified reason; Z95.1 Presence of aortocoronary bypass graft
CPT/HCPCS: 36415; 37224; 37228; 71045; 73562; 73630; 73660; 75710; 80048; 80053; 80076; 82306; 82550; 82607; 82948; 83036; 83735; 83880; 84100; 84145; 84484; 84550; 85025; 85027; 85610; 85651; 85730; 86140; 90935; 93005; 93926; 93971; 94664; 99156; 99157; C1769; C1893; C1894; G0378; J1644; J1815; J2250; J3010; J3490; Q9967; C1725; C1760; C1887; C2623

== ENCOUNTER 2024-08-05 20:08 | Emergency (ER) | payer OTHER ==
[~2024-08-05] VITALS: Ht 167.6 cm; Wt 62.1 kg
[~2024-08-05 20:08] MED LIST changes: +ACET-3859 PO; -ACET325T51 PO; +AMMO385C4 TP; +BALS60OI4 TP; +CALC-125 PO; +CARV12.580 PO; -CARV3.12 PO; +CHOL12502 PO; +CITA10TA13 PO; +EPOE20002 IJ; +FOLI0.8T43 PO; +FURO20TA6 PO; +INSLAN SQ; +IPRA3AMP24 IH; -ISOS10TA8 PO; +ISOS60TA77 PO; -LIDO700A30 TP; +MAGN400T51 PO; +MELA1TAB16 PO; +ONDA-104 PO; +PANT40TA55 PO; +SACU1TAB4 PO; -SACU1TAB7 PO; -SERT-438 PO; -SEVE800T7 PO
--- NOTE | 2024-08-05 20:49 | NUR ---
BLOOD SOAKED GAUZE DRESSING REMOVED FROM LAVA, NO ACTIVE BLEEDING NOTED, WRAPPED UPPER ARM WITH GAUZE.
--- NOTE | 2024-08-05 21:03 | NUR ---
[facility] CONTACTED FOR TRANSFER TO [facility] IN [place]
--- NOTE | 2024-08-05 21:04 | ERN ---
General Chief Complaint: Other Problems Stated Complaint: BLEEDING FROM LAVA Time Seen by MD: 20:15 Time Seen by Midlevel: 20:15 Source: patient, family (daughter), EMS History of Present Illness Initial Comments The patient is a 74-year-old male with a past medical history of end-stage renal disease on hemodialysis being brought in by EMS for evaluation of bleeding from his dialysis site. Bleeding was noticed earlier today. A pressure gauze was placed and patient was transported to the ER via EMS. On arrival with the patient was no complaints. No active bleeding on arrival. Allergies: Coded Allergies: Cephalosporins (Unverified Allergy, Severe, SWELLING, 12/20/23) ANAPHYLACTIC REACTION Penicillins (Unverified Allergy, Severe, SWELLING, 12/20/23) ANAPHYLACTIC REACTION diphenhydramine (Unverified Allergy, Intermediate, hallucinations , 12/20/23) meropenem (Unverified Adverse Reaction, Intermediate, HALLUCINATIONS, 12/20/23) AGGRESION AND COMBATIVE WITH SUICIDAL IDEATIONS Home Meds Active Scripts Sacubitril/Valsartan (Entresto 97 mg-103 mg Tablet) 97 Mg-103 Mg Tablet, 1 EACH PO BID, #30 TAB 0 Refills Prov:SHITAL RANDOLPH MD 01/31/24 Isosorbide Mononitrate (Isosorbide Mononitrate ER) 60 Mg Tab.er.24h, 60 MG PO DAILY, #30 TAB Prov:SHITAL RANDOLPH MD 01/31/24 Carvedilol (Coreg) 12.5 Mg Tablet, 12.5 MG PO BID, #60 TAB 0 Refills Prov:SHITAL RANDOLPH MD 01/31/24 Reported Medications Ondansetron HCl (Ondansetron HCl) 4 Mg Tablet, 4 MG PO TIDP PRN for NAUSEA AND VOMITTING, TAB 01/28/24 Cholecalciferol (Vitamin D3) (Weekly-D) 1,250 Mcg (19783 Unit) Capsule, 1250 MCG PO QWEEK, CAP 01/28/24 Calcium Carbonate (Calcium Carbonate) 500 Mg Calcium (1250 Mg) Tablet, 500 MG PO Q6HPRN PRN for GERD, TAB 01/28/24 Folic Acid/Vit Bcomp,C (Renal-Su Tablet) 0.8 Mg Tablet, 0.8 MG PO DAILY, TAB 01/28/24 Pantoprazole Sodium (Protonix) 40 Mg Ectab, 40 MG PO DAILYBKFST, TAB.EC 01/28/24 Melatonin/Pyridoxine (Melatonin 5 mg Tablet) 5 Mg-1 Mg Tablet, 1 EACH PO HS, TAB 01/28/24 Magnesium Oxide (Magnesium Oxide) 400 Mg Magnesium Tablet, 400 MG PO DAILY, TAB 01/28/24 Furosemide (Lasix 20Mg Tab) 20 Mg Tablet, 20 MG PO BID, TAB 01/28/24 Insulin Glargine,Hum.rec.anlog (Lantus) 100 Unit/Ml Inj, 15 UNITS SQ DAILY, ML 01/28/24 Ipratropium/Albuterol Sulfate (Iprat-Albut 0.5-3(2.5) mg/3 ml) 0.5 Mg-3 Mg (2.5 Mg Base)/3 Ml Ampul.neb, 3 ML IH TID PRN for SHORTNESS OF BREATH 01/28/24 Finasteride (Finasteride) 5 Mg Tablet, 5 MG PO DAILY, TAB 01/28/24 Epoetin Jermaine (Epogen) 2,000 Unit/Ml Vial, 1000 UNIT IJ ON M,W,F , VIAL 01/28/24 Citalopram Hydrobromide (Celexa) 10 Mg Tablet, 10 MG PO DAILY, TAB 01/28/24 Balsam [place] Oil (Balsam [place] Oil Oint) 60 Gm Oint...g., 1 APPL TP BID 01/28/24 Ammonium Lactate (Ammonium Lactate) 12 % Cream..g., 1 APPL TP BID for DRY SKIN 01/28/24 Nifedipine (Nifedipine ER) 30 Mg Tab.er.24, 30 MG PO DAILY 12/21/23 Lactulose (Lactulose) 10 Gram/15 Ml Solution, 10 GM PO AD PRN for CONSTIPATION, ML 12/21/23 Clopidogrel Bisulfate (Clopidogrel) 75 Mg Tablet, 75 MG PO DAILY, TAB 12/21/23 Atorvastatin Calcium (Atorvastatin Calcium) 40 Mg Tablet, 40 MG PO HS, TAB 12/21/23 Aspirin (Aspirin) 81 Mg Tab.chew, 81 MG PO DAILY, TAB.CHEW 12/21/23 Acetaminophen (Acetaminophen) 325 Mg Tablet, 500 MG PO Q6HPRN PRN for MILD PAIN (1-3), TAB 12/21/23 Past Medical History Past Medical History: Diabetes-Type II, High Cholesterol, Hypertension, Renal Failure, Other Medical History Other: CKD ON DIALYSIS Past Surgical History: Other, LAVA Surgical History Other: LEFT BKA Family History Family History: Negative Social History Social History: Negative ROS Dictation CONSTITUTIONAL: Negative except for HPI HEAD/FACE: Negative except for HPI EENT: Negative except for HPI RESPIRATORY: Negative except for HPI GASTROINTESTINAL/ABDOMINAL: Negative except for HPI GENITOURINARY: Negative except for HPI MUSCULOSKELETAL: Negative except for HPI INTEGUMENTARY: Negative except for HPI NEUROLOGICAL/PSYCH: Negative except for HPI HEMATOLOGIC/LYMPHATIC: Negative except for HPI All Systems Negative, Except as noted above. 13 point review of systems assessed and all negative except for above. Physical Exam Physical Exam Dictation Vital Signs reviewed General Appearance: Alert, oriented x 3, no acute distress, well developed, nourished. Head and Face: non-traumatic. Eyes: PERRL, pink conjunctivas, eyelid no trauma, anterior chamber with arcus senilis. Ears: Pinnas intact and no signs of trauma or erythema ear canals clear and no discharge TM no erythema Nose: No discharge, no bleeding. Oropharynx: Mouth normal, tongue pink, pharynx clear,no erythema, tonsils no exudates, no abscesses noted, mucous membrane moist Neck: Supple, non-tender, no thyromegaly, no masses, no JVD, no bruits Breast:Deferred Chest:No tenderness, no crepitus, no paradoxical movement, no retractions Lungs:Clear, well-ventilated, symmetric, no rales, no wheezing, no rhonchi, no stridor, good breath sounds bilaterally Heart: Regular rate, regular rhythm, no murmur, no gallops Vascular: no peripheral edema, Lava in place with palpable thrill, no active bleeding Abdomen: Soft, positive bowel sounds, nondistended, no guarding, nontender, no rebound, no masses no hepatomegaly, no splenomegaly, no Gonzalez's sign, no hernias. Rectal: Deferred Genital: Deferred Neurological: Normal speech, motor function intact, sensory function intact Musculoskeletal: Neck nontender, full range of motion, back nontender, full range of motion, Extremities: nontender, full range of motion Skin: Color pink, dry, no turgor, no rash, no lacerations, no abrasions, no contusions. Lymphatic: Deferred MDM MDM: The patient is a 74-year-old male with a past medical history of end-stage renal disease on hemodialysis being brought in by EMS for evaluation of bleeding from his dialysis site. Bleeding was noticed earlier today. A pressure gauze was placed and patient was transported to the ER via EMS. On arrival with the patient was no complaints. No active bleeding on arrival. On physical examination the patient has a Lava in place with palpable thrill. No active bleeding. There was a pressure gauze placed by EMS however we removed did there was no active bleeding or visible laceration. The area was rewrapped in the patient was discharged home after being observed in the ER for over 1 hour. Differential diagnosis: Hemodialysis access evaluation, wound evaluation, laceration There are no social concerns with this patient. Prescription drug management Prescriptions will include: None Medical management and examination interpretation discussions were had by me with other qualified healthcare professionals as indicated for the patient's care. ED Course Orders Procedure Category Date Status Time *Nursing CPOE 08/05/24 Transmitted Communication: 20:29 Vital Signs Date Time Temp Pulse Resp B/P (MAP) Pulse Ox O2 Delivery O2 Flow Rate FiO2 08/05/24 22:04 98.2 75 16 142/66 99 Room Air* 0 21 08/05/24 20:19 98.6 87 16 145/65 99 Room Air 0 08/05/24 20:09 98.6 87 16 145/65 99 Room Air* 0 21 DX & DISP Disposition: Discharge Departure Impression: Primary Impression: Hemodialysis graft malfunction Condition: Stable Referrals: ARMAND PAYNE SENIOUR INSIGHT MANAGER (PCP) I have reviewed the case, and I agree with, Diagnosis and Plan I performed the substantive portion of the visit. I have reviewed and personally made and approve the management plan that is documented in the note by myself or the ESPERANZA. I acknowledge for responsibility for the patient's management plan. KOFI RODRIGUEZ Aug 05, 2024 21:04 SOURAV ESPINOZA DO Aug 06, 2024 07:34
[2024-08-05 22:04] VITALS: BP 142/66; PULSE 75; RESP 16; TEMP 98.3; O2SAT 99
== END 2024-08-05 22:57 | disposition home or self-care (01) ==
LOC: EDH 20:08
DX: T82.49XA Other complication of vascular dialysis catheter, initial encounter (principal); E11.22 Type 2 diabetes mellitus with diabetic chronic kidney disease; E78.00 Pure hypercholesterolemia, unspecified; I12.0 Hypertensive chronic kidney disease with stage 5 chronic kidney disease or end stage renal disease; N18.6 End stage renal disease; Z79.02 Long term (current) use of antithrombotics/antiplatelets; Z79.4 Long term (current) use of insulin; Z79.82 Long term (current) use of aspirin; Z79.899 Other long term (current) drug therapy; Z88.0 Allergy status to penicillin; Z88.1 Allergy status to other antibiotic agents; Z89.512 Acquired absence of left leg below knee; Z99.2 Dependence on renal dialysis; Y83.2 Surgical operation with anastomosis, bypass or graft as the cause of abnormal reaction of the patient, or of later complication, without mention of misadventure at the time of the procedure; Y73.8 Miscellaneous gastroenterology and urology devices associated with adverse incidents, not elsewhere classified
CPT/HCPCS: 99283

== ENCOUNTER 2024-08-06 21:35 | Emergency (ER) | payer OTHER ==
[~2024-08-06] VITALS: Ht 167.6 cm; Wt 62.1 kg
--- NOTE | 2024-08-06 21:42 | ERN ---
ED Note History of Present Illness Stated Complaint: SENT FROM [facility] FOR AMS Chief Complaint: Other Problems Time Seen by MD: 21:39 Dictation: PATIENT IS A 74-YEAR-OLD MALE COMING IN VIA EMS WITH COMPLAINTS OF ALTERED MENTAL STATUS FROM THE HALF-WAY WHERE HE LIVES. 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 NO FEVER NO CHILLS NO HEADACHE. ON ARRIVAL PATIENT WAS ALERT AND ORIENTED X4 SPEECH IS CLEAR HE IS ANSWERING QUESTIONS APPROPRIATELY. HE ALSO REMEMBERS BEING HERE LAST NIGHT IN THE STAFF WHO TOOK CARE OF HIM WHEN HE WOULD CAME IN FOR QUESTIONABLE BLEEDING FROM HIS LEFT ARM FISTULA. NIH IS 0 AT THIS TIME Allergies: Coded Allergies: Cephalosporins (Unverified Allergy, Severe, SWELLING, 12/20/23) ANAPHYLACTIC REACTION Penicillins (Unverified Allergy, Severe, SWELLING, 12/20/23) ANAPHYLACTIC REACTION diphenhydramine (Unverified Allergy, Intermediate, hallucinations , 12/20/23) meropenem (Unverified Adverse Reaction, Intermediate, HALLUCINATIONS, 12/20/23) AGGRESION AND COMBATIVE WITH SUICIDAL IDEATIONS Home Meds Active Scripts Sacubitril/Valsartan (Entresto 97 mg-103 mg Tablet) 97 Mg-103 Mg Tablet, 1 EACH PO BID, #30 TAB 0 Refills Prov:SHITAL RANDOLPH MD 01/31/24 Isosorbide Mononitrate (Isosorbide Mononitrate ER) 60 Mg Tab.er.24h, 60 MG PO DAILY, #30 TAB Prov:SHITAL RANDOLPH MD 01/31/24 Carvedilol (Coreg) 12.5 Mg Tablet, 12.5 MG PO BID, #60 TAB 0 Refills Prov:SHITAL RANDOLPH MD 01/31/24 Reported Medications Ondansetron HCl (Ondansetron HCl) 4 Mg Tablet, 4 MG PO TIDP PRN for NAUSEA AND VOMITTING, TAB 01/28/24 Cholecalciferol (Vitamin D3) (Weekly-D) 1,250 Mcg (60910 Unit) Capsule, 1250 MCG PO QWEEK, CAP 01/28/24 Calcium Carbonate (Calcium Carbonate) 500 Mg Calcium (1250 Mg) Tablet, 500 MG PO Q6HPRN PRN for GERD, TAB 01/28/24 Folic Acid/Vit Bcomp,C (Renal-Su Tablet) 0.8 Mg Tablet, 0.8 MG PO DAILY, TAB 01/28/24 Pantoprazole Sodium (Protonix) 40 Mg Ectab, 40 MG PO DAILYBKFST, TAB.EC 01/28/24 Melatonin/Pyridoxine (Melatonin 5 mg Tablet) 5 Mg-1 Mg Tablet, 1 EACH PO HS, TAB 01/28/24 Magnesium Oxide (Magnesium Oxide) 400 Mg Magnesium Tablet, 400 MG PO DAILY, TAB 01/28/24 Furosemide (Lasix 20Mg Tab) 20 Mg Tablet, 20 MG PO BID, TAB 01/28/24 Insulin Glargine,Hum.rec.anlog (Lantus) 100 Unit/Ml Inj, 15 UNITS SQ DAILY, ML 01/28/24 Ipratropium/Albuterol Sulfate (Iprat-Albut 0.5-3(2.5) mg/3 ml) 0.5 Mg-3 Mg (2.5 Mg Base)/3 Ml Ampul.neb, 3 ML IH TID PRN for SHORTNESS OF BREATH 01/28/24 Finasteride (Finasteride) 5 Mg Tablet, 5 MG PO DAILY, TAB 01/28/24 Epoetin Jermaine (Epogen) 2,000 Unit/Ml Vial, 1000 UNIT IJ ON M,W,F , VIAL 01/28/24 Citalopram Hydrobromide (Celexa) 10 Mg Tablet, 10 MG PO DAILY, TAB 01/28/24 Balsam [place] Oil (Balsam [place] Oil Oint) 60 Gm Oint...g., 1 APPL TP BID 01/28/24 Ammonium Lactate (Ammonium Lactate) 12 % Cream..g., 1 APPL TP BID for DRY SKIN 01/28/24 Nifedipine (Nifedipine ER) 30 Mg Tab.er.24, 30 MG PO DAILY 12/21/23 Lactulose (Lactulose) 10 Gram/15 Ml Solution, 10 GM PO AD PRN for CONSTIPATION, ML 12/21/23 Clopidogrel Bisulfate (Clopidogrel) 75 Mg Tablet, 75 MG PO DAILY, TAB 12/21/23 Atorvastatin Calcium (Atorvastatin Calcium) 40 Mg Tablet, 40 MG PO HS, TAB 12/21/23 Aspirin (Aspirin) 81 Mg Tab.chew, 81 MG PO DAILY, TAB.CHEW 12/21/23 Acetaminophen (Acetaminophen) 325 Mg Tablet, 500 MG PO Q6HPRN PRN for MILD PAIN (1-3), TAB 12/21/23 Past Medical History Past Medical History: Diabetes-Type II, High Cholesterol, Hypertension, Renal Failure, Other Additional Past Medical Hx: CKD ON DIALYSIS Surgical History: Other, LAVA Surgical History Other: LEFT BKA Family History: Negative Social History: Negative RN Note Reviewed/Agreed w/PFSH: Yes Review of System Dictation CONSTITUTIONAL: NEGATIVE EXCEPT FOR HPI HEAD/FACE: NEGATIVE EXCEPT FOR HPI EENT: NEGATIVE EXCEPT FOR HPI RESPIRATORY: NEGATIVE EXCEPT FOR HPI GASTROINTESTINAL/ABDOMINAL: NEGATIVE EXCEPT FOR HPI GENITOURINARY: NEGATIVE EXCEPT FOR HPI MUSCULOSKELETAL: NEGATIVE EXCEPT FOR HPI INTEGUMENTARY: NEGATIVE EXCEPT FOR HPI NEUROLOGICAL/PSYCH: NEGATIVE EXCEPT FOR HPI AMS HEMATOLOGIC/LYMPHATIC: NEGATIVE EXCEPT FOR HPI ALL SYSTEMS NEGATIVE, EXCEPT NOTED ABOVE. 13 POINT REVIEW OF SYSTEMS ASSESSED AND ALL NEGATIVE EXCEPT FOR ABOVE. Initial Vital Sign VS Vital Signs Date Time Temp Pulse Resp B/P (MAP) Pulse Ox O2 Delivery O2 Flow Rate FiO2 08/06/24 21:40 98.4 67 17 181/81 99 Room Air 0 08/06/24 21:52 21 Physical Exam Dictation VITAL SIGNS REVIEWED GENERAL APPEARANCE: ALERT, ORIENTED X 3, NO ACUTE DISTRESS, WELL DEVELOPED, NOURISHED. HEAD AND FACE: NON-TRAUMATIC. EYES: PERRL, PINK CONJUNCTIVAS, EYELID NO TRAUMA, ANTERIOR CHAMBER WITH ARCUS SENILIS. EARS: PINNAS INTACT AND NO SIGNS OF TRAUMA OR ERYTHEMA EAR CANALS CLEAR AND NO DISCHARGE TM NO ERYTHEMA NOSE: NO DISCHARGE, NO BLEEDING. OROPHARYNX: MOUTH NORMAL, TONGUE PINK, PHARYNX CLEAR,NO ERYTHEMA, TONSILS NO EXUDATES, NO ABSCESSES NOTED, MUCOUS MEMBRANE MOIST NECK: SUPPLE, NON-TENDER, NO THYROMEGALY, NO MASSES, NO JVD, NO BRUITS BREAST:DEFERRED CHEST:NO TENDERNESS, NO CREPITUS, NO PARADOXICAL MOVEMENT, NO RETRACTIONS LUNGS:CLEAR, WELL-VENTILATED, SYMMETRIC, NO RALES, NO WHEEZING, NO RHONCHI, NO STRIDOR, GOOD BREATH SOUNDS BILATERALLY HEART: REGULAR RATE, REGULAR RHYTHM, NO MURMUR, NO GALLOPS VASCULAR: NO PERIPHERAL EDEMA, LEFT ARM FISTULA WITH GOOD THRILL AND BRUIT ABDOMEN: SOFT, POSITIVE BOWEL SOUNDS, NONDISTENDED, NO GUARDING, NONTENDER, NO REBOUND, NO MASSES NO HEPATOMEGALY, NO SPLENOMEGALY, NO TIDWELL'S SIGN, NO HERNIAS. RECTAL: DEFERRED GENITAL: DEFERRED NEUROLOGICAL: NORMAL SPEECH, MOTOR FUNCTION INTACT, SENSORY FUNCTION INTACT NIH IS 0 MUSCULOSKELETAL: NECK NONTENDER, FULL RANGE OF MOTION, BACK NONTENDER, FULL RANGE OF MOTION, EXTREMITI BILATERAL AKA. SKIN: COLOR PINK, DRY, NO TURGOR, NO RASH, NO LACERATIONS, NO ABRASIONS, NO CONTUSIONS. LYMPHATIC: DEFERRED Results (Laboratory/Radiology) Laboratory/Radiology Laboratory Tests Test 08/06/24 21:58 White Blood Count 5.9 K/uL (4.8-10.8) Red Blood Count 3.50 MIL/uL (4.50-6.20) L Hemoglobin 9.7 g/dL (14.0-18.0) L Hematocrit 32.2 % (42-54) L Mean Corpuscular Volume 92.0 fL (79-99) Mean Corpuscular Hemoglobin 27.7 pg (27.0-33.0) Mean Corpuscular Hemoglobin Concent 30.1 g/dL (32.0-36.0) L Red Cell Distribution Width 18.2 % (11.0-15.5) H Platelet Count 148 K/uL (130-400) Mean Platelet Volume 10.5 fL (7.5-10.5) Immature Granulocyte % (Auto) 1.0 % (0-1) Neutrophils (%) (Auto) 78.5 % (40.0-77.0) H Lymphocytes (%) (Auto) 9.2 % (21.0-51.0) L Monocytes (%) (Auto) 8.3 % (3.0-13.0) Eosinophils (%) (Auto) 2.7 % (0.0-8.0) Basophils (%) (Auto) 0.3 % (0.0-5.0) Neutrophils # (Auto) 4.6 K/uL (1.8-7.7) Lymphocytes # (Auto) 0.5 K/uL (1.0-4.8) L Monocytes # (Auto) 0.5 K/uL (0.1-1.0) Eosinophils # (Auto) 0.16 K/uL (0.00-0.70) Basophils # (Auto) 0.02 K/uL (0.00-0.20) Absolute Immature Granulocyte (auto 0.06 K/uL (0-1) Nucleated Red Blood Cells 0.0 % (0.0-0.19) Sodium Level 137 mmol/L (136-145) Potassium Level 3.7 mmol/L (3.5-5.1) Chloride Level 99 mmol/L (101-111) L Carbon Dioxide Level 29 mmol/L (21-32) Blood Urea Nitrogen 27 mg/dL (7-18) H Creatinine 2.5 mg/dL (0.5-1.3) H Glomerular Filtration Rate Calc 26 mL/min (>90) Random Glucose 150 mg/dL (70-105) H Total Calcium 8.8 mg/dL (8.5-10.1) Troponin I High Sensitivity 33 ng/L (4-75) Labs Reviewed?: Yes EKG Comment: EKG SINUS RHYTHM/HEART RATE 68/AXIS NORMAL/LEFT VENTRICULAR HYPERTROPHY SEEN IN MULTIPLE LEADS NO ACUTE CHANGES ED Course ED Course Orders Procedure Category Date Status Time Cbc With Differential LAB 08/06/24 In Process 21:39 Troponin I High LAB 08/06/24 Complete Sensitivity 21:39 12 Lead Ekg Tracing- EKG 08/06/24 Complete Technical 21:39 Basic Metabolic Panel LAB 08/06/24 Complete 21:39 Vital Signs Date Time Temp Pulse Resp B/P (MAP) Pulse Ox O2 Delivery O2 Flow Rate FiO2 08/06/24 21:52 99.0 68 20 171/69 98 Room Air* 0 21 08/06/24 21:40 98.4 67 17 181/81 99 Room Air 0 2240/patient alert and oriented x4 speech is clear patient has benign blood pressure elevation and we will be taken his medications when he gets back to the half-way tonight. Patient will be discharged back to half-way to continue all medications and treatments. HEART Score Response (Comments) Value EKG: Repolarization changes 1 Age: > 65yrs (+2) 2 Risk Factors: 3+ risk factors (+2) 2 Initial Troponin: Normal limit (0) 0 Total 5 Medical Decision Making MDM Medical discharge making based on basic labs and EKG. Labs are all baseline per patient EKG baseline per patient Troponin negative Patient neurologically he is at baseline. Discharged back to half-way to continue all medications and treatments. DX & DISP Disposition: Discharge Departure Impression: Primary Impression: Elevated troponin Additional Impressions: ESRD on hemodialysis, Anemia of chronic kidney failure, Benign hypertension Condition: Stable Additional Instructions: Follow-up with primary care provider in 1 to 2 days. Take medications as directed here in the emergency room. Okay to continue home medications unless otherwise discussed during your visit in the emergency room today. Return to your nearest emergency room if symptoms worsen or if there is no improvement. Call 911 if you need immediate assistance. Take Tylenol or Motrin [id number] as needed and if no contraindications are present. Increase oral hydration. A wound culture or urine culture was ordered here in the emergency room department please follow-up with primary care provider and advise them to get repeat ports from our facility. If you had any Gregorio wrap/splints that were applied here, please do not remove them until you see your primary care or specialty. Medically cleared to returned to half-way resume all medications and treatments. Your primary care doctor for follow up Referrals: ARMAND PAYNE NP (PCP) Time of Disposition: 22:45 I have reviewed the case, and I agree with, Diagnosis and Plan GABRIEL MORAES NP Aug 06, 2024 21:42
--- NOTE | 2024-08-06 21:48 | EKG ---
[facility] Test Date: 2024-08-06 Test Time: 21:46:44 Pat Name: ITZEL BOSE Department: ED Room: Gender: M Client Support Professional: [id number] : [id number] Requested By: GABRIEL MORAES Order Number: [id number] Reading MD: Nadia Rivera Measurements Intervals [place] Rate: 68 P: 6 MI: 189 QRS: -11 QRSD: 88 T: 133 QT: 426 QTc: 454 Interpretive Statements Sinus rhythm Probable LVH with secondary repol abnrm Compared to ECG 01/28/2024 21:26:53 ST (T wave) deviation no longer present Prolonged QT interval no longer present Electronically Signed On 08-07-2024 15:03:51 CDT by Nadia Rivera Please click the below link to view image of tracing.
[2024-08-06 22:14] LABS: BASOPHILS # (AUTO) 0.02 K/uL (0.00-0.20); BASOPHILS % (AUTO) 0.3 % (0.0-5.0); EOSINOPHILS # (AUTO) 0.16 K/uL (0.00-0.70); EOSINOPHILS % (AUTO) 2.7 % (0.0-8.0); HEMATOCRIT 32.2 % (42-54); IMMATURE GRANULOCYTE ABSOLUTE 0.06 K/uL (0-1); LYMPHOCYTES # (AUTO) 0.5 K/uL (1.0-4.8); LYMPHOCYTES % (AUTO) 9.2 % (21.0-51.0); MEAN CORPUSCULAR HEMOGLOBIN 27.7 pg (27.0-33.0); MEAN CORPUSCULAR HGB CONC 30.1 g/dL (32.0-36.0); MONOCYTES # (AUTO) 0.5 K/uL (0.1-1.0); MONOCYTES % (AUTO) 8.3 % (3.0-13.0); NEUTROPHILS # (AUTO) 4.6 K/uL (1.8-7.7); NEUTROPHILS % (AUTO) 78.5 % (40.0-77.0); PLATELET COUNT (AUTO) 148 K/uL (130-400); RED CELL DISTRIBUTION WIDTH 18.2 % (11.0-15.5); WHITE BLOOD COUNT (AUTO) 5.9 K/uL (4.8-10.8)
[2024-08-06 22:17] LABS: CREATININE 2.5 mg/dL (0.5-1.3); POTASSIUM 3.7 mmol/L (3.5-5.1)
--- NOTE | 2024-08-06 23:02 | NUR ---
PATIENT LIVES IN A SNF, AD[address]ESS [id number], [place]
--- NOTE | 2024-08-06 23:09 | NUR ---
[facility] CONTACTED FOR TRANSFER BACK TO [facility]
[2024-08-07 00:25] VITALS: BP 153/68; PULSE 61; RESP 20; TEMP 99; O2SAT 98
== END 2024-08-07 00:26 | disposition home or self-care (01) ==
LOC: EDH 21:35
DX: I12.0 Hypertensive chronic kidney disease with stage 5 chronic kidney disease or end stage renal disease (principal); E11.22 Type 2 diabetes mellitus with diabetic chronic kidney disease; N18.6 End stage renal disease; R79.89 Other specified abnormal findings of blood chemistry; D63.1 Anemia in chronic kidney disease; E78.00 Pure hypercholesterolemia, unspecified; Z79.02 Long term (current) use of antithrombotics/antiplatelets; Z79.4 Long term (current) use of insulin; Z79.82 Long term (current) use of aspirin; Z79.899 Other long term (current) drug therapy; Z88.0 Allergy status to penicillin; Z88.1 Allergy status to other antibiotic agents; Z99.2 Dependence on renal dialysis; Z89.512 Acquired absence of left leg below knee
CPT/HCPCS: 36415; 80048; 84484; 85025; 93005; 99284